=== PATIENT | male | born 1950 ===

== ENCOUNTER 2022-09-25 09:43 | Day surgery (SDC) | payer MEDICARE, OTHER ==
[2022-09-25] MEDS ORDERED: Sodium Chloride 0.9% 10 ML Syringe IV ONE (09:44)
[2022-09-25] MEDS ORDERED: Midazolam 1 MG/ML 2 ML SDV IV ONE (09:44)
[2022-09-25] MEDS ORDERED: Dexamethasone 4 MG/ML SDV IV ONE (09:44)
[2022-09-25] MEDS ORDERED: Cataract Ophth Solution EYELF ONE (09:45)
[2022-09-25] MEDS ORDERED: Timolol Maleate 0.5% Ophth Soln 5 ML Bottle EYELF ONE (09:45)
[2022-09-25] MEDS ORDERED: Moxifloxacin 0.5% Ophth Soln 3 ML Bottle EYELF ONE (09:45)
[2022-09-25] MEDS ORDERED: Proparacaine 0.5% Ophth Soln 15 ML Bottle EYELF ONE ×2 (09:45→10:33)
[2022-09-25] MEDS ORDERED: Ondansetron 4 MG/2 ML SDV IVPUSH PRN (09:45)
[2022-09-25] MEDS ORDERED: Povidone-Iodine 5% Sterile Ophth Soln 30 ML Bottle EYELF ONE ×2 (09:45→10:34)
[2022-09-25] MEDS ORDERED: Acetaminophen/Codeine 300-30 MG Tab PO PRN (09:45)
[2022-09-25] MEDS ORDERED: Tropicamide 1% Ophth Soln 15 ML Bottle EYELF ONE (09:45)
[2022-09-25] MEDS ORDERED: Sodium Chloride 0.9% 10 ML Syringe FLUSH PRN (09:45)
[2022-09-25] MEDS ORDERED: Phenylephrine 10% Ophth Soln 5 ML Bot EYELF PRN (09:45)
[2022-09-25] MEDS ORDERED: Acetaminophen 325 MG Tab PO PRN (09:45)
[2022-09-25] MEDS ORDERED: Lidocaine 1% 30 ML SDV ONE (10:36)
[2022-09-25] MEDS ORDERED: Balanced Salt Solution Ophth Irrig 500 ML Bottle IOCULAR ONE (10:37)
[2022-09-25] MEDS ORDERED: Chondroitin Sulfate/Hyaluronate Sodium Ophth Inj 0.75 ML Syringe EYELF ONE (10:38)
[2022-09-25] MEDS ORDERED: Vancomycin 500 MG SDV EYELF ONE (10:45)
[2022-09-25] MEDS ORDERED: Apraclonidine 0.5% Ophth Soln 5 ML Bot EYELF ONE (10:47)
[2022-09-25] MEDS ORDERED: Diclofenac Sodium 0.1% Ophth Soln 5 ML Bottle EYELF ONE (10:48)
[2022-09-25] MEDS ORDERED: Dexamethasone/Neomycin/Polymyxin B Ophth Oint 3.5 GM Tube EYELF ONE (10:49)
[2022-09-25 14:19] VITALS: PULSE 65
[2022-09-25 14:20] VITALS: BP 158/74
== END 2022-09-25 11:30 | disposition home or self-care (01) ==
LOC: DL.SDS 09:43
PROVIDERS: ATTEND Ophthalmology
DX: E11.36 Type 2 diabetes mellitus with diabetic cataract (principal); H25.812 Combined forms of age-related cataract, left eye; I10 Essential (primary) hypertension; R73.01 Impaired fasting glucose; E78.2 Mixed hyperlipidemia; J44.9 Chronic obstructive pulmonary disease, unspecified; E66.9 Obesity, unspecified; Z98.890 Other specified postprocedural states; Z79.84 Long term (current) use of oral hypoglycemic drugs; Z87.891 Personal history of nicotine dependence
CPT/HCPCS: 66982; A9270; J1100; J2250; J3370; J3490; 00142; V2632

== ENCOUNTER 2022-10-09 09:39 | Day surgery (SDC) | payer MEDICARE, OTHER ==
[2022-10-09] MEDS: Povidone-Iodine 5% Sterile Ophth Soln 30 ML Bottle EYERT ONE ×3 (07:28→11:01)
[2022-10-09] MEDS: Proparacaine 0.5% Ophth Soln 15 ML Bottle EYERT ONE ×3 (07:28→11:00)
[2022-10-09] MEDS: Apraclonidine 0.5% Ophth Soln 5 ML Bot EYERT ONE ×2 (07:29→11:01)
[2022-10-09] MEDS: Diclofenac Sodium 0.1% Ophth Soln 5 ML Bottle EYERT ONE ×2 (07:29→11:02)
[2022-10-09] MEDS: Dexamethasone/Neomycin/Polymyxin B Ophth Oint 3.5 GM Tube EYERT ONE ×2 (07:30→11:03)
[2022-10-09] MEDS: Lidocaine 1% 30 ML SDV ONE ×2 (07:31→11:04)
[2022-10-09] MEDS: Balanced Salt Solution Ophth Irrig 500 ML Bottle IOCULAR ONE ×2 (07:31→11:05)
[2022-10-09] MEDS: Vancomycin 500 MG SDV EYERT ONE ×2 (07:32→11:06)
[2022-10-09] MEDS: Chondroitin Sulfate/Hyaluronate Sodium Ophth Inj 0.75 ML Syringe EYERT ONE ×2 (07:32→11:06)
[2022-10-09] MEDS ORDERED: Dexamethasone 4 MG/ML SDV IV ONE (09:40)
[2022-10-09] MEDS ORDERED: Midazolam 1 MG/ML 2 ML SDV IV ONE (09:40)
[2022-10-09] MEDS ORDERED: Sodium Chloride 0.9% 10 ML Syringe IV ONE (09:40)
[2022-10-09] MEDS ORDERED: Acetaminophen 325 MG Tab PO PRN (09:45)
[2022-10-09] MEDS ORDERED: Ondansetron 4 MG/2 ML SDV IVPUSH PRN (09:45)
[2022-10-09] MEDS ORDERED: Acetaminophen/Codeine 300-30 MG Tab PO PRN (09:45)
[2022-10-09] MEDS: Moxifloxacin 0.5% Ophth Soln 3 ML Bottle EYERT ONE (09:56)
[2022-10-09] MEDS: Tropicamide 1% Ophth Soln 15 ML Bottle EYERT ONE (09:58)
[2022-10-09] MEDS: Timolol Maleate 0.5% Ophth Soln 5 ML Bottle EYERT ONE (09:59)
[2022-10-09] MEDS: Phenylephrine 10% Ophth Soln 5 ML Bot EYERT PRN (09:59)
[2022-10-09] MEDS: Cataract Ophth Solution EYERT ONE (10:00)
[2022-10-09] MEDS: Sodium Chloride 0.9% 10 ML Syringe FLUSH PRN (10:05)
[2022-10-09 11:44] VITALS: BP 151/75; PULSE 61
== END 2022-10-09 11:50 | disposition home or self-care (01) ==
LOC: DL.SDS 09:39
PROVIDERS: ATTEND Ophthalmology
DX: E11.36 Type 2 diabetes mellitus with diabetic cataract (principal); H25.811 Combined forms of age-related cataract, right eye; J45.909 Unspecified asthma, uncomplicated; I10 Essential (primary) hypertension; I26.99 Other pulmonary embolism without acute cor pulmonale; E78.5 Hyperlipidemia, unspecified; E66.9 Obesity, unspecified; Z88.1 Allergy status to other antibiotic agents; Z79.01 Long term (current) use of anticoagulants; Z98.890 Other specified postprocedural states; Z87.891 Personal history of nicotine dependence; E78.2 Mixed hyperlipidemia; Z79.84 Long term (current) use of oral hypoglycemic drugs; Z79.899 Other long term (current) drug therapy; Z68.41 Body mass index [BMI] 40.0-44.9, adult
CPT/HCPCS: 00142; A9270-GY; J1100; J2250; J3370; J3490; V2632